=== PATIENT | female | born 1990 | race Caucasian/White ===

== ENCOUNTER 2022-08-17 01:57 | Emergency (ER) | payer MEDICAID | END 2022-08-17 02:28 | disposition home or self-care (01) | LOC: ED 01:57 | DX: S99.922A Unspecified injury of left foot, initial encounter (principal); Z53.21 Procedure and treatment not carried out due to patient leaving prior to being seen by health care provider ==

== ENCOUNTER 2022-08-30 02:22 | Emergency (ER) | payer MEDICAID ==
[2022-08-30 02:35] VITALS: BP 134/72
--- NOTE | 2022-08-30 02:38 | ED Physician Documentation ---
PD HPI FEMALE - Stated complaint Stated Complaint: NEEDS LABWORK - Chief complaint Chief Complaint: General - History obtained from History obtained from: Patient - History of Present Illness Timing - onset: How many months ago (the patient just found out information that a prior sexual partner has hiv. has not had intercourse for about 6 months with that person. no recent illness, weight loss, other infections. Would like to be tested for STIs generally. 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: Other Other Past Medical History: Hx of Chlamydia - Past Surgical History Past Surgical History: No - Present Medications Home Medications: Ambulatory Orders Medication Instructions Recorded Confirmed No Known Home Medications 08/30/22 08/30/22 - Allergies Allergies/Adverse Reactions: Allergies Allergy/AdvReac Type Severity Reaction Status Date / Time No Known Drug Allergies Allergy Verified 08/30/22 09:36 - Social History Does the pt smoke?: Yes Smoking Status: Current every day smoker Does the pt drink ETOH?: No Does the pt have substance abuse?: No - Immunizations Immunizations are current?: No - POLST Patient has POLST: No PD ED PE NORMAL - Vitals Vital signs reviewed: Yes - General General: Alert and oriented X 3, No acute distress, Well developed/nourished - Female Female : Deferred Results - Vitals Vitals: Oxygen O2 Source Room air - Labs Labs: Laboratory Tests 08/30/22 08/30/22 02:58 02:58 C. glabrata (PCR) NEGATIVE C. krusei (PCR) NEGATIVE Zahra species DNA POSITIVE A Chlam trachomat DNA PCR NEGATIVE N.gonorrhoeae DNA (PCR) NEGATIVE T. vaginalis (PCR) NEGATIVE TNP Bact Vaginosis (PCR) NEGATIVE PD Medical Decision Making - ED course Complexity details: reviewed results (tests obtained and she can track results on the [employer] portal. We will certain call for positive blood tests or significant STIs. ), considered differential (exposure to person with HIV, unknown if person had it at the time of their encounters.), d/w patient Departure - Departure Disposition: 01 Home, Self Care Clinical Impression: Exposure to HIV Condition: Stable Record reviewed to determine appropriate education?: Yes Follow-Up: [facility] [Provider Group] Comments: The blood and vaginal test should result in the next day or 2. The results are available on the patient portal. We do typically call positive results. Follow-up with the [facility] clinic if any positive test or return to the ER. Discharge Date/Time: 08/30/22 03:30
[2022-08-30 05:29] LABS: BACTERIAL VAGINOSIS DNA NEGATIVE (NEGATIVE); CANDIDA GLABRATA DNA NEGATIVE (NEGATIVE); CANDIDA GROUP DNA POSITIVE (NEGATIVE); CANDIDA KRUSEI DNA NEGATIVE (NEGATIVE); TRICHOMONAS VAGINALIS DNA NEGATIVE (NEGATIVE)
[2022-08-30 23:26] LABS: CHLAMYDIA TRACHOMATIS DNA NEGATIVE (NEGATIVE); NEISSERIA GONORRHOEAE DNA NEGATIVE (NEGATIVE)
[2022-09-01 04:09] LABS: HIV SCREEN 4TH GENERATION Non Reactive (Non Reactive)
== END 2022-08-30 03:30 | disposition home or self-care (01) ==
LOC: ED 02:22
DX: Z20.6 Contact with and (suspected) exposure to human immunodeficiency virus [HIV] (principal); F17.200 Nicotine dependence, unspecified, uncomplicated
CPT/HCPCS: 81514; 86780; 87389; 87491; 87591; 87661; 99283